=== PATIENT | female | born 1985 | race Caucasian/White ===

== ENCOUNTER 2016-08-06 02:35 | Emergency (ER) ==
[2016-08-06 02:47] VITALS: BP 128/84; TEMP 98.8; BMI 43.4
[2016-08-06] MEDS ORDERED: SODIUM CHLORIDE 1,000 ML IV STA (03:05)
[2016-08-06] MEDS ORDERED: MORPHINE 2 MG/ML SYRINGE IVP STA ×2 (03:05→04:11)
[2016-08-06] MEDS ORDERED: ZOFRAN 4 MG/2 ML IVP STA (03:07)
--- NOTE | 2016-08-06 03:11 | ED.PDOC ---
General ED Provider: Dr. KENNY BAIN Chief Complaint: Abdominal Pain Stated Complaint: Patient complaints of rectal and Pelvic pain for the past 3 days the pain is wose today. Has been passing alot of zachary. Admits to Drinking Alcohol tonight a pint of whisky Time Seen by Physician: 03:00 Mode of Arrival: Walk-In Information Source: Patient, Family Exam Limitations: No limitations [facility] Nursing and Triage Documentation Reviewed and Agree: Yes Review of Systems - Review Of Systems Constitutional: Reports: No symptoms Eyes: Reports: No symptoms Ears, Nose, Mouth, Throat: Reports: No symptoms Respiratory: Reports: No symptoms Cardiac: Reports: No symptoms GI: Reports: Abdominal pain, Other (rectal pain ) : Denies: Flank pain, Pain, Urgency Musculoskeletal: Reports: No symptoms Skin: Reports: No symptoms Neurological: Reports: No symptoms Endocrine: Reports: No symptoms Hematologic/Lymphatic: Reports: No symptoms All Other Systems: Reviewed and Negative Past Medical History - Past Medical History Endocrine: Reports: None Cardiovascular: Reports: None Respiratory: Reports: None Hematological: Reports: None Gastrointestinal: Reports: GERD Genitourinary: Reports: None Neuro/Psych: Reports: None Musculoskeletal: Reports: None Cancer: Reports: None Last Menstrual Period: 05/24/16 - states cycle not regular - Surgical History General Surgical History: Reports: Other (Endoscopy ) - Family History Family History: Reports: None - Social History Smoking Status: Current every day smoker Hx Substance Use: No Alcohol Screening: Occasionally - Immunizations Tetanus Shot up to Date: Yes Physical Exam - Physical Exam Appearance: Ill-appearing, Obese Ill-appearing: Severe Pain Distress: Severe Neck: Supple Respiratory: Airway patent, Breath sounds clear, Breath sounds equal, Respirations nonlabored Cardiovascular: RRR, Pulses normal, No rub, No murmur GI/: Soft, No masses, Bowel sounds normal, No Organomegaly, Tender (right lower and left lower abdominal pain.) Musculoskeletal: Normal strength, ROM intact, No edema, No calf tenderness Skin: Warm, Dry, Normal color Neurological: Sensation intact, Motor intact, Alert, Oriented Psychiatric: Anxious Critical Care Note - Critical Care Note Total Time (mins): 0 Course - Course Hematology/Chemistry: 08/06/16 03:20 08/06/16 03:20 Orders, Labs, Meds: Lab Review 08/06/16 03:20 WBC 15.20 H RBC 4.61 Hgb 13.8 Hct 39.9 MCV 86.6 MCH 29.9 MCHC 34.6 RDW Coeff of Letty 13.5 Plt Count 260 Immature Gran % (Auto) 0.5 Neut % (Auto) 60.7 Lymph % (Auto) 28.7 [place] % (Auto) 7.8 Eos % (Auto) 1.6 Baso % (Auto) 0.7 Immature Gran # (Auto) 0.1 Neut # 9.2 H Lymph # 4.4 H [place] # 1.2 Eos # 0.2 Baso # 0.1 Sodium 139 Potassium 3.7 Chloride 108 H Carbon Dioxide 22 Anion Gap 12.7 BUN 15 Creatinine 0.77 Estimated GFR (MDRD) 87.00 BUN/Creatinine Ratio 19.48 Glucose 101 Calcium 9.1 Total Bilirubin 0.24 AST 15 ALT 20 Alkaline Phosphatase 81 Total Protein 6.6 Albumin 3.4 Globulin 3.2 Albumin/Globulin Ratio 1.06 Amylase 34 Lipase 18 Serum , Qual Negative Plasma/Serum Alcohol 78.6 Orders Category Date Time Status ED IV/MEDIPORT/POWERPORT .ONCE EMERGENCY 08/06/16 03:06 Active AMYLASE Stat LAB 08/06/16 03:20 Completed BLOOD ALCOHOL Stat LAB 08/06/16 03:20 Completed CBC W/ AUTO DIFF Stat LAB 08/06/16 03:20 Completed COMPREHENSIVE METABOLIC PANEL Stat LAB 08/06/16 03:20 Completed HCG QUALITATIVE [SERUM ] Stat LAB 08/06/16 03:20 Completed LIPASE Stat LAB 08/06/16 03:20 Completed UA [URINALYSIS C & S IF INDICATED] Stat LAB 08/06/16 03:51 Ordered 0.9 % Sodium Chloride [Saline Flush] MEDS 08/06/16 03:06 Ordered 1 syr IVF PRN PRN Morphine Sulfate [Morphine 2 mg/ml Syringe] MEDS 08/06/16 03:05 Discontinued 2 mg IVP ONCE STA Ondansetron HCl/Pf [Zofran 4 mg/2 ml] MEDS 08/06/16 03:07 Discontinued 4 mg IVP ONCE STA Pantoprazole Sodium [Protonix IV] MEDS 08/06/16 04:04 Stat 80 mg IVP ONCE STA Sodium Chloride 0.9% [Sodium Chloride] 1,000 ml MEDS 08/06/16 03:[address] ABD/PEL WO RENAL STONE PROT Stat RADS 08/06/16 03:06 Ordered Medications Generic Name Dose Route Start Last Admin Trade Name Freq PRN Reason Stop Dose Admin Sodium Chloride 1 syr 08/06/16 03:06 Saline Flush IVF PRN PRN To flush IV Discontinued Medications Generic Name Dose Route Start Last Admin Trade Name Freq PRN Reason Stop Dose Admin Sodium Chloride 1,000 mls @ 1,000 mls/hr 08/06/16 03:05 08/06/16 03:28 Sodium Chloride IV 08/06/16 04:04 1,000 mls/hr BOLUS STA Administration Morphine Sulfate 2 mg 08/06/16 03:05 08/06/16 03:28 Morphine 2 Mg/Ml Syringe IVP 08/06/16 03:06 2 mg ONCE STA Administration Ondansetron HCl 4 mg 08/06/16 03:07 08/06/16 03:28 Zofran 4 Mg/2 Ml IVP 08/06/16 03:08 4 mg ONCE STA Administration Vital Signs: Temp Pulse Resp BP Pulse Ox 08/06/16 02:37 98.8 F 62 20 128/84 97 Departure - Departure Time of Disposition: 05:06 Disposition: HOME SELF-CARE Discharge Problem: Rectal pain Instructions: Rectal Pain (ED) Condition: Stable Pt referred to PMD for follow-up: Yes Additional Instructions: Take Medications as prescribed Follow up with PCP in 3 days Prescriptions: Dicyclomine HCl [Bentyl] 10 mg PO TID PRN #20 capsule PRN Reason: Abdominal Pain Opium/Belladonna Alkaloids [B & O Suppository] 1 supp RC DAILY PRN #5 supp.rect PRN Reason: Anal Spasms Allergies/Adverse Reactions: Allergies hydromorphone HCl [From Dilaudid] Allergy (Intermediate, Verified 05/24/15 19:31 ) Hives promethazine HCl [From Phenergan] Allergy (Intermediate, Verified 05/24/15 19:31 ) Vomiting Home Medications: Ambulatory Orders Dicyclomine HCl [Bentyl] 10 mg PO TID PRN #20 capsule 08/06/16 Opium/Belladonna Alkaloids [B & O Suppository] 1 supp RC DAILY PRN #5 supp.rect 08/06/16 Phentermine HCl 37.5 mg PO DAILY 08/06/16 Disposition Discussed With: Patient, Family
[2016-08-06 03:30] LABS: BASOPHILS # (AUTO) 0.1 K/uL (0-0.2); BASOPHILS % (AUTO) 0.7 % (0.0-3.0); EOSINOPHILS # (AUTO) 0.2 K/ul (0.0-0.7); EOSINOPHILS % (AUTO) 1.6 % (0.0-7.0); HEMATOCRIT 39.9 % (37.0-47.0); HEMOGLOBIN 13.8 g/dl (12.0-16.0); IMMATURE GRANULOCYTE % (AUTO) 0.5 % (0.0-5.0); LYMPHOCYTES # (AUTO) 4.4 K/uL (0.60-3.4); LYMPHOCYTES % (AUTO) 28.7 (10.0-50.0); MEAN CORPUSCULAR HEMOGLOBIN 29.9 pg (27.0-31.0); MEAN CORPUSCULAR HGB CONC 34.6 (31.8-35.4); MEAN CORPUSCULAR VOLUME 86.6 fl (81.0-99.0); MONOCYTES # (AUTO) 1.2 K/uL (0.4-2.0); MONOCYTES % (AUTO) 7.8 (0-10); NEUTROPHILS # (AUTO) 9.2 K/ul (2.0-6.9); NEUTROPHILS % (AUTO) 60.7; PLATELET COUNT 260 10^3/uL (140-440); RED BLOOD COUNT 4.61 10^6/ul (4.20-5.40)
[2016-08-06 03:35] LABS: SERUM PREGNANCY INTERNAL QC INTERNAL QC VALID
[2016-08-06 03:39] LABS: ALBUMIN 3.4 g/dL (3.4-5.0); ALBUMIN/GLOBULIN RATIO 1.06; ANION GAP 12.7; BILIRUBIN,TOTAL 0.24 mg/dL (0.00-1.20); BUN/CREATININE RATIO 19.48; CALCIUM 9.1 mg/dL (8.2-10.2); CREATININE 0.77 mg/dL (0.60-1.30); POTASSIUM 3.7 mmol/L (3.5-5.10); TOTAL PROTEIN 6.6 g/dL (6.4-8.2)
[2016-08-06] MEDS ORDERED: PROTONIX IV IVP STA (04:04)
[2016-08-06] MEDS ORDERED: BENTYL IM STA (04:05)
--- NOTE | 2016-08-06 04:33 | CT ---
EXAM: CT scan abdomen pelvis without contrast HISTORY: Pelvic pain COMPARISON: CT scan abdomen pelvis 10/28/2008 FINDINGS: Contiguous axial images obtained from lung bases to the symphysis pubis without contrast utilizing 3-mm collimation. Sagittal and coronal reconstructions were imaged and reviewed.. The vi sualized lung bases are clear. The gallbladder is contracted. The liver, pancreas, spleen and adre nal glands have normal unenhanced CT appearance. The kidneys are morphologically normal.. There is a normal appendix.. The abdominal aorta is normal course and caliber without aneurysm formation. T here is a small umbilical hernia containing only fat. There is no evidence of free fluid or inflamm atory changes. Calcification in the right pelvis is likely related to a phlebolith. IMPRESSION: No acute intra-abdominal findings.
[2016-08-06 04:46] LABS: BILIRUBIN,URINE Negative (NEGATIVE); KETONES,URINE Trace (NEGATIVE); LEUKOCYTE ESTERASE ,URINE Trace (NEGATIVE); NITRITE,URINE Negative (NEGATIVE); PH,URINE 5.5 (5-9); PROTEIN,URINE Negative (NEGATIVE); URINE, BLOOD Trace-lysed (NEGATIVE)
[2016-08-06 04:49] LABS: ADD URINE MICROSCOPIC YES
[2016-08-06 04:50] LABS: BACTERIA,URINE TRACE (NOT PRESENT)
== END 2016-08-06 05:00 | disposition home or self-care (01) ==
LOC: ED 02:35
DX: K62.89 Other specified diseases of anus and rectum (principal); R10.30 Lower abdominal pain, unspecified; F17.210 Nicotine dependence, cigarettes, uncomplicated
CPT/HCPCS: 36415; 74176; 80053; 80307; 81001; 82150; 83690; 84703; 85025; 96361; 96365; 96372; 96374; 96375; 96376; 99284

== ENCOUNTER 2016-08-07 20:59 | Emergency (ER) ==
[2016-08-07 20:59] VITALS: BMI 43.4
[2016-08-07] MEDS ORDERED: NORCO 7.5-325 PO STA (21:05)
[2016-08-07] MEDS ORDERED: AUGMENTIN 875-125 MG TAB PO STA (21:05)
[2016-08-07 21:08] VITALS: BP 143/90; TEMP 99.3
--- NOTE | 2016-08-07 21:37 | ED.PDOC ---
General ED Provider: Dr. OLYA RIVER-ER Chief Complaint: Bite Stated Complaint: i got bit by a dog Time Seen by Physician: 20:55 Mode of Arrival: Walk-In Information Source: Patient Exam Limitations: No limitations Nursing and Triage Documentation Reviewed and Agree: Yes Skin Complaint Exam - Skin/Soft Tissue Complaint/Exam Onset/Duration: one hour Symptoms Are: Still present Timing: Constant Initial Severity: Mild Current Severity: Moderate Location: right hand Character: Reports: Swelling, Raised, Painful Aggravating: Reports: None Alleviating: Reports: None Associated Signs and Symptoms: Reports: Bruising, Tenderness. Denies: Fever, Chills, Itching, Drainage, Red streaks, Joint swelling Related Surgical History: Reports: None Recent Exposure to Others w/Similar Symptoms: No Skin Findings: Present: Other Joint Tenderness Present: No Differential Diagnoses: Infection, Other Review of Systems - Review Of Systems Constitutional: Reports: No symptoms Eyes: Reports: No symptoms Ears, Nose, Mouth, Throat: Reports: No symptoms Respiratory: Reports: No symptoms Cardiac: Reports: No symptoms GI: Reports: No symptoms : Reports: No symptoms Musculoskeletal: Reports: No symptoms Skin: Reports: No symptoms Neurological: Reports: No symptoms Endocrine: Reports: No symptoms Hematologic/Lymphatic: Reports: No symptoms All Other Systems: Reviewed and Negative Past Medical History - Past Medical History Endocrine: Reports: None Cardiovascular: Reports: None Respiratory: Reports: None Hematological: Reports: None Gastrointestinal: Reports: GERD Genitourinary: Reports: None Neuro/Psych: Reports: None Musculoskeletal: Reports: None Cancer: Reports: None Last Menstrual Period: may, 2016 - Surgical History General Surgical History: Reports: Other (Endoscopy ) - Family History Family History: Reports: None - Social History Smoking Status: Current every day smoker, Light tobacco smoker Hx Substance Use: No Alcohol Screening: Occasionally - Immunizations Tetanus Shot up to Date: Yes (2 yrs ago) Physical Exam - Physical Exam Appearance: Well-appearing, No pain distress, Well-nourished Pain Distress: Mild Eyes: MELLISA, EOMI, Conjunctiva clear ENT: Ears normal, Nose normal, Oropharynx normal Neck: Supple Respiratory: Airway patent Cardiovascular: RRR, Pulses normal, No rub, No murmur GI/: Soft, Nontender, No masses, Bowel sounds normal, No Organomegaly Musculoskeletal: Normal strength, ROM intact, No edema, No calf tenderness Skin: Warm, Dry, Normal color Neurological: Sensation intact Psychiatric: Affect appropriate, Mood appropriate Interpretation - Radiology Interpretation Radiology Interpretation By: ED Physician Radiology Results: Negative Critical Care Note - Critical Care Note Total Time (mins): 0 Course - Course Orders, Labs, Meds: Orders Category Date Time Status Wound care [ED WOUND CARE] .ONCE EMERGENCY 08/07/16 21:05 Active Amoxicillin/Potassium Clav [Augmentin 875-125 mg Tab] MEDS 08/07/16 21:05 Discontinued 1 tab PO ONCE STA Hydrocodone Bit/Acetaminophen [Mckenna 7.5-325] MEDS 08/07/16 21:05 Discontinued 1 tab PO ONCE STA HAND, RIGHT 3 VIEWS Stat RADS 08/07/16 21:05 Taken Medications Discontinued Medications Generic Name Dose Route Start Last Admin Trade Name Freq PRN Reason Stop Dose Admin Acetaminophen/Hydrocodone Bitart 1 tab 08/07/16 21:05 08/07/16 21:29 Mckenna 7.5-325 PO 08/07/16 21:06 1 tab ONCE STA Administration Amoxicillin/Clavulanate Potassium 1 tab 08/07/16 21:05 08/07/16 21:30 Augmentin 875-125 Mg Tab PO 08/07/16 21:06 1 tab ONCE STA Administration Vital Signs: Temp Pulse Resp BP Pulse Ox 08/07/16 20:59 99.3 F 92 H 20 143/90 H 96 Departure - Departure Time of Disposition: 21:37 Disposition: HOME SELF-CARE Discharge Problem: Dog bite of extremity Instructions: Animal Bite (ED) Condition: Good Pt referred to PMD for follow-up: Yes Additional Instructions: norco 5mg q 4hrs prn pain #10--augmentin 875mg bid x 5 days--wash with soap and water and cover with antibiotic ointment till healed.. Allergies/Adverse Reactions: Allergies hydromorphone HCl [From Dilaudid] Allergy (Intermediate, Verified 08/07/16 21:08 ) Hives promethazine HCl [From Phenergan] Allergy (Intermediate, Verified 08/07/16 21:08 ) Vomiting Home Medications: Ambulatory Orders Dicyclomine HCl [Bentyl] 10 mg PO TID PRN #20 capsule 08/06/16 Opium/Belladonna Alkaloids [B & O Suppository] 1 supp RC DAILY PRN #5 supp.rect 08/06/16 Phentermine HCl 37.5 mg PO DAILY 08/06/16 Disposition Discussed With: Patient
--- NOTE | 2016-08-08 08:01 | DI ---
EXAM: Right hand four views HISTORY: Dog bite COMPARISON: None FINDINGS: No fracture or dislocation. Negative ulnar variance. The joints are normal. Suggestion o f soft tissue air about the lateral posterior hand IMPERSSION: 1. No fracture or dislocation. 2. Suggestion of soft tissue air about the lateral posterior hand likely related to the dog bite.. Report faxed at time of dictation.
== END 2016-08-07 22:00 | disposition home or self-care (01) ==
LOC: ED 20:59
DX: S61.451A Open bite of right hand, initial encounter (principal); W54.0XXA Bitten by dog, initial encounter; F17.210 Nicotine dependence, cigarettes, uncomplicated
CPT/HCPCS: 99283

== ENCOUNTER 2017-03-21 15:13 | Outpatient (CLI) ==
[2017-03-21 15:40] LABS: ALBUMIN 3.5 g/dL (3.4-5.0); ALBUMIN/GLOBULIN RATIO 0.9; ANION GAP 12.9; BILIRUBIN,TOTAL 0.31 mg/dL (0.00-1.20); BUN/CREATININE RATIO 12.5; CALCIUM 9.3 mg/dL (8.2-10.2); CHOL/HDL RATIO 3.3 (4.5-5.5); CREATININE 0.72 mg/dL (0.60-1.30); POTASSIUM 3.9 mmol/L (3.5-5.10); TOTAL PROTEIN 7.4 g/dL (6.4-8.2)
== END 2017-03-21 15:14 | disposition home or self-care (01) ==
LOC: LAB 15:13
PROVIDERS: ATTEND Nurse Practitioner Family
DX: Z00.00 Encounter for general adult medical examination without abnormal findings (principal)
CPT/HCPCS: 36415; 80053; 80061